=== PATIENT | female | born 2000 | race Caucasian/White ===

== ENCOUNTER 2023-12-05 04:55 | Emergency (ER) | payer MEDICAID ==
[~2023-12-05] VITALS: Ht 162.6 cm; Wt 90.9 kg
[2023-12-05] MEDS ORDERED: PENI500T2 PO (06:13)
[2023-12-05 06:44] VITALS: BP 141/100; PULSE 65; RESP 16; TEMP 98.1; O2SAT 98
== END 2023-12-05 06:46 | disposition home or self-care (01) ==
LOC: ER 04:56
DX: K02.9 Dental caries, unspecified (principal); K04.7 Periapical abscess without sinus; K08.89 Other specified disorders of teeth and supporting structures
CPT/HCPCS: 99283